=== PATIENT | male | born 1945 | race Caucasian/White ===

== ENCOUNTER 2020-05-01 06:51 | Day surgery (SDC) | payer MEDICARE ==
[2020-05-01] MEDS ORDERED: Fentanyl 100 MCG/2 ML VIAL ONE (07:55)
[2020-05-01] MEDS ORDERED: Sodium Bicarbonate 2.5 MEQ/5 ML VIAL ONE (07:55)
[2020-05-01] MEDS ORDERED: Midazolam HCl 2 mg/2 ml Vial ONE (07:55)
[2020-05-01] MEDS ORDERED: cefTRIAXone\\ROCEPHIN 1 GM in Sodium Chloride 0.9% 100 ML IVPB SCH (08:00)
[2020-05-01 09:35] VITALS: BP 104/72; TEMP 98.2
--- NOTE | 2020-05-01 12:01 | SPC ---
PROCEDURE: Left antegrade pyelogram PROVIDED CLINICAL HISTORY: Left nephrolithiasis and hydronephrosis. COMPARISON: CT abdomen on 04/05/2020 TECHNIQUE: The procedure including the risks and complications were explained to the patient, and informed conse nt was obtained. Patient was administered 1 g of Rocephin intravenously prior to the procedure. Conscious sedation was performed with intravenous administration of 0.5 mg of Versed and 25 mcg of fe ntanyl. Patient was monitored for approximately 30 minutes during the procedure. Patient was placed on the fluoroscopy table in the prone position. Limited sonogram of the left kidne y was performed, but no hydronephrosis was identified. Shadowing from a calculus in the renal pelvis was visualized on sonographic evaluation. An area overlying the inferior pole left renal calcu luna was marked utilizing fluoroscopic guidance. The area was meticulously prepped and draped in usual sterile fashion. The skin and subcutaneous tissues were infiltrated with buffered 1% lidocaine for local anesthesia. U tilizing fluoroscopic guidance, a 22-gauge Chiba needle was advanced to the level of the calculus in the anterior left renal calyx. Contrast was injected demonstrating mild dilatation of the anterior inferior pole left renal calyx with contrast preferentially extending down the left ureter without contrast opacification of the mid portion or upper pole renal collecting system. A posterior calyx wa s unable to be opacified for adequate access prior to PCNL procedure. As result, the procedure was terminated at this time. Findings were discussed with Dr. Ortiz. Hemostasis was achieved with direct pressure, and a dry sterile dressing was placed. The patient tole rated the procedure well and without immediate complication. Patient was transferred to radiology nurses holding area for further monitoring prior to discharge. Fluoroscopy: Time-6.4 minutes Dose-36,608 mGy centimeter squared IMPRESSION: 1. Technically successful left antegrade pyelogram demonstrating left nephrolithiasis with large lisa l calculus in the renal pelvis and calculus in an anterior inferior pole left renal calyx. 2. Antegrade pyelogram was successfully performed with contrast preferentially extending down the lef t ureter without adequate opacification of posterior calyces or the upper pole collecting system left kidney. As result, a left nephrostomy tube was not placed at this time. 3. Findings were discussed with Dr. Ortiz. A left nephroureteral catheter will be placed in the o perating room on 05/02/2020.
== END 2020-05-01 10:20 | disposition home or self-care (01) ==
LOC: SPEC 06:51
PROVIDERS: ATTEND Urology
PROC: BT1F1ZZ Fluoroscopy of Left Kidney, Ureter and Bladder using Low Osmolar Contrast (ICD-10-PCS; principal; 2020-05-01)
DX: N13.2 Hydronephrosis with renal and ureteral calculous obstruction (principal); E11.9 Type 2 diabetes mellitus without complications; I10 Essential (primary) hypertension; E78.00 Pure hypercholesterolemia, unspecified; N40.1 Benign prostatic hyperplasia with lower urinary tract symptoms; N13.8 Other obstructive and reflux uropathy; N32.81 Overactive bladder; G89.29 Other chronic pain; Z79.4 Long term (current) use of insulin; Z79.899 Other long term (current) drug therapy; Z88.5 Allergy status to narcotic agent; Z88.8 Allergy status to other drugs, medicaments and biological substances; Z95.1 Presence of aortocoronary bypass graft
CPT/HCPCS: 50430; J0696; J2250; J3010; J3490

== ENCOUNTER 2020-05-06 17:18 | Emergency (ER) | payer MEDICARE ==
[~2020-05-06 17:18] MED LIST: Iopamidol-370 76% 500 ML 1 ML ONE
[2020-05-06 18:49] LABS: #Basophils 0.1 thou/uL (0.0-0.2); #Eosinphils 0.2 thou/uL (0.0-0.7); #Lymphocytes 1.7 thou/uL (1.20-3.40); #Monocytes 0.9 thou/uL (0.11-0.59); #Neutrophils 5.6 thou/uL (1.40-6.50); %Basophils 0.7 % (0.0-1.0); %Eosinophils 2.3 % (0.0-10.0); %Lymphocytes 19.8 % (21.0-51.0); %Monocytes 10.9 % (0.0-10.0); %Neutrophils 66.3 % (42.0-75.0); Hemoglobin 12.5 g/dL (14.0-18.0); Mean Corpuscular HGB CONC 34.8 g/dL (32.0-36.0); Mean Corpuscular Hemoglobin 34.9 pg (27.0-31.0); Mean Platelet Volume 6.5 fL (7.4-10.4); Platelet Count 213 thou/uL (130-400); RBC Distribution Width 11.4 % (11.5-14.5); Red Blood Cell (RBC) Count 3.59 mill/uL (4.70-6.10); White Blood Cell (WBC) Count 8.5 thou/uL (4.8-10.8)
[2020-05-06 19:07] LABS: ALT (SGPT) 17 U/L (8-55); AST (SGOT) 22 U/L (5-34); Albumin 3.4 g/dL (3.4-4.8); Alkaline Phosphatase 112 U/L (40-110); Anion Gap 12 mmol/L (10-20); BUN (Urea Nitrogen) 18 mg/dL (8.4-25.7); Bilirubin, Total 0.6 mg/dL (0.2-1.2); Calc. Creatinine Clearance 0 mL/min (70-130); Calcium 8.2 mg/dL (7.8-10.44); Carbon Dioxide 24 mmol/L (23-31); Chloride 104 mmol/L (98-107); Estimated GFR-MDRD Greater than 90; Globulin 2.7 g/dL (2.4-3.5); Glucose 195 mg/dL (83-110); Magnesium 1.7 mg/dL (1.6-2.6); Potassium 3.9 mmol/L (3.5-5.1); Protein, Total 6.1 g/dL (5.8-8.1); Sodium 136 mmol/L (136-145)
[2020-05-06 20:20] LABS: Clarity Turbid (Clear); Specific Gravity, Urine 1.029 (1.002-1.036)
[2020-05-06 20:21] LABS: Bilirubin Unable to Interpret (Negative); Blood, Urine Unable to Interpret (Negative); Glucose, Urine (Dipstick) Unable to Interpret mg/dL (Negative); Ketone, Urine Unable to Interpret mg/dL (Negative); Leukocyte Unable to Interpret (Negative); Nitrite Unable to Interpret (Negative); Protein, Urine (Dipstick) 100 mg/dL (Neg-Trace); Urobilinogen UNABLE TO INTERPRET mg/dL (Less than 2)
[2020-05-06 20:23] LABS: Bacteria/HPF 2+ HPF (None Seen); RBC/HPF Greater than 50 HPF (0-3); Squamous Epithelial 0-3 HPF (0-3); WBC/HPF Greater Than 50 HPF (0-3)
--- NOTE | 2020-05-06 21:23 | CT ---
CT ABDOMEN AND PELVIS PERFORMED WITH AND WITHOUT CONTRAST ENHANCEMENT: 05/06/20 HISTORY: Patient had an attempted nephrostomy tube placed in on Friday. Since that procedure, patient has had increasing back pain and serosanguinous drainage from left flank. The lung bases show chronic appearing change. Also minimal atelectatic change. There are fatty change s of the liver. The spleen is within normal limits of size. Pancreas is atrophic and the gallbladder has been removed. Calcifications associated with the right adrenal gland. No mass. Left adrenal is normal. Small right renal cyst is seen in the mid pole region. On the left side, there are fragments of the stones within the left renal pelvis. A left ureteral joe nt is in good position. There is some dilatation of the calyces. Contrast is not seen within a somewh at dilated left renal pelvis. I am not certain if this is just uneven mixing or related to some blood products in this region or mass. The patient has a posterior track extending from the lower pole of the left kidney with some fluid density seen extending along the tracks although there is no large dr ainable collection or signs of an abscess. There is decreased attenuation along the anterior cortex o f the kidney in this region. It may be the sequela of the attempted tube placement. There is no para renal collection. The left renal pelvis is dilated and the margins are indistinct. There is no signif icant periaortic or mesenteric adenopathy. CT OF PELVIS PERFORMED WITH AND WITHOUT CONTRAST ENHANCEMENT: No adenopathy, mass or free fluid. 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 IMPRESSION: Left ureteral stents in good position. Some dilatation to the left renal pelvis which has indistinct margins. Contrast is seen within slightly dilated calyces but the contrast does not extend into the r enal pelvis. I am not certain if this is related to edema change, blood or mass. There are fragments of the stone in this region. In addition, there is evidence of a nephrostomy track extending from the lower pole of the left kidney. There is some minimal fluid density seen along this track extending into the subcutaneous tissue but no large drainable collection. POS: OFF
[2020-05-06] MEDS ORDERED: cefTRIAXone\\ROCEPHIN 2 GM VIAL ONE (21:35)
== END 2020-05-06 22:38 | disposition home or self-care (01) ==
LOC: ERS 17:18
DX: N99.89 Other postprocedural complications and disorders of genitourinary system (principal); R31.9 Hematuria, unspecified; G20 Parkinson's disease; E11.40 Type 2 diabetes mellitus with diabetic neuropathy, unspecified; E78.5 Hyperlipidemia, unspecified; F32.9 Major depressive disorder, single episode, unspecified
CPT/HCPCS: 36415; 51702; 74178; 80053; 81003; 81015; 83605; 83735; 85025; 87040; 87086; 96374; J0696; Q9967

== ENCOUNTER 2021-06-24 19:27 | Emergency (ER) | payer MEDICARE ==
[2021-06-24 20:11] LABS: #Basophils 0.1 thou/uL (0.0-0.2); #Eosinphils 0.1 thou/uL (0.0-0.7); #Lymphocytes 1.4 thou/uL (1.20-3.40); #Monocytes 0.6 thou/uL (0.11-0.59); %Basophils 0.7 % (0.0-1.0); %Eosinophils 0.8 % (0.0-10.0); %Lymphocytes 17.2 % (21.0-51.0); %Monocytes 7.8 % (0.0-10.0); %Neutrophils 73.6 % (42.0-75.0); Hemoglobin 17.1 g/dL (14.0-18.0); Mean Corpuscular Hemoglobin 34.8 pg (27.0-31.0); Mean Corpuscular Volume 99.4 fL (78.0-98.0); Mean Platelet Volume 6.2 fL (7.4-10.4); Platelet Count 237 thou/uL (130-400); RBC Distribution Width 11.5 % (11.5-14.5); White Blood Cell (WBC) Count 8.1 thou/uL (4.8-10.8)
[2021-06-24 20:33] LABS: ALT (SGPT) 24 U/L (8-55); AST (SGOT) 24 U/L (5-34); Alkaline Phosphatase 155 U/L (40-110); Anion Gap 18 mmol/L (10-20); BUN (Urea Nitrogen) 19 mg/dL (8.4-25.7); Bilirubin, Total 1.6 mg/dL (0.2-1.2); Calc. Creatinine Clearance 0 mL/min (70-130); Calcium 9.1 mg/dL (7.8-10.44); Carbon Dioxide 17 mmol/L (23-31); Chloride 102 mmol/L (98-107); Globulin 3.4 g/dL (2.4-3.5); Glucose 408 mg/dL (83-110); Potassium 3.8 mmol/L (3.5-5.1); Protein, Total 7.4 g/dL (5.8-8.1); Sodium 133 mmol/L (136-145)
[2021-06-24 21:26] LABS: Actual Bicarbonate (HCO3v) 20 mEq/L (22-28); Analyzer IN Cardio ER; Base Excess -5.1 mEq/L (-2.0 to +3.0); Chloride (VBG) 99 mmol/L (98-106); Hemoglobin (Hb) 17.2 g/dL (12.6-17.4); Potassium (VBG) 3.66 mmol/L (3.70-5.30); Sodium 133.9 mmol/L (133-146); pH (venous) 7.34 (7.32-7.43)
[2021-06-24 21:38] LABS: Magnesium 1.8 mg/dL (1.6-2.6)
[2021-06-24 21:55] LABS: Bacteria/HPF None Seen HPF (None Seen); Bilirubin Negative (Negative); Blood, Urine 3+ (Negative); Clarity Clear (Clear); Glucose, Urine (Dipstick) Greater than 1000 mg/dL (Negative); Ketone, Urine 40 mg/dL (Negative); Leukocyte Negative Leu/uL (Negative); Mucous/LPF Rare LPF (<2+); Nitrite Negative (Negative); Protein, Urine (Dipstick) 20 mg/dL (Neg-Trace); RBC/HPF Greater than 50 HPF (0-3); Specific Gravity, Urine 1.032 (1.002-1.036); Squamous Epithelial None Seen HPF (0-3); Urobilinogen Normal mg/dL (Less than 2); pH, Urine 5.5 (5.0-9.0)
[2021-06-24] MEDS ORDERED: Lantus 1000 UNITS/10 ML VIAL SC SCH (22:30)
[2021-06-24 23:29] LABS: Anion Gap 13 mmol/L (10-20); BUN (Urea Nitrogen) 18 mg/dL (8.4-25.7); Calc. Creatinine Clearance 0 mL/min (70-130); Carbon Dioxide 23 mmol/L (23-31); Chloride 102 mmol/L (98-107); Glucose 310 mg/dL (83-110); Potassium 3.9 mmol/L (3.5-5.1); Sodium 134 mmol/L (136-145)
== END 2021-06-25 00:42 | disposition home or self-care (01) ==
LOC: ERS 19:27
DX: E11.65 Type 2 diabetes mellitus with hyperglycemia (principal); R19.7 Diarrhea, unspecified; E11.40 Type 2 diabetes mellitus with diabetic neuropathy, unspecified; E78.5 Hyperlipidemia, unspecified; I10 Essential (primary) hypertension; Z79.899 Other long term (current) drug therapy; Z79.4 Long term (current) use of insulin
CPT/HCPCS: 36415; 80053; 81003; 81015; 82010; 82805; 83735; 84100; 85025; 93005; J1815